=== PATIENT | female | born 1995 | race Caucasian/White ===

== ENCOUNTER 2017-08-04 18:03 | Emergency (ER) | payer BC ==
[~2017-08-04] VITALS: Ht 165.1 cm; Wt 54.5 kg
[~2017-08-04 18:03] MED LIST: NORCO 325 MG-51 TAB PO
[2017-08-04 18:06] VITALS: BP 145/96; TEMP 98.8
[2017-08-04] MEDS ORDERED: BENADRYL25 M2 PO (18:09)
[2017-08-04] MEDS ORDERED: DITROPAN 5MG TAB5 MG PO (18:09)
[2017-08-04] MEDS ORDERED: YAZ 28 3 MG-0.01 TAB PO (18:09)
[2017-08-04 20:02] VITALS: PULSE 74
== END 2017-08-04 20:03 | disposition home or self-care (01) ==
LOC: COL.ER 18:03
DX: S06.0X1A Concussion with loss of consciousness of 30 minutes or less, initial encounter (principal); S29.012A Strain of muscle and tendon of back wall of thorax, initial encounter; S39.012A Strain of muscle, fascia and tendon of lower back, initial encounter; W18.39XA Other fall on same level, initial encounter; Y93.21 Activity, ice skating; Y92.830 Public park as the place of occurrence of the external cause